=== PATIENT | female | born 2000 | race Caucasian/White ===

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

== ENCOUNTER 2023-11-05 15:11 | Inpatient (IN) ==
--- NOTE | 2023-11-05 15:25 | Emergency Department Note ---
Impression & Plan Pyelonephritis of left kidney, Abscess of left kidney ED Provider Note CHIEF COMPLAINT: Urinary symptoms worsening HISTORY OF PRESENTING ILLNESS: This 23-year-old female patient presents to the emergency department with her mother for evaluation of worsening urinary symptoms. The patient was seen by her PCP on 11/03/2023 for flank pain, fever 104 F max, and nausea. She was diagnosed with a UTI at that time. She was started on Bactrim DS BID x 7 days, but her symptoms do not seem to be improving. Urine culture came back today, growing greater than 100,000 and E. coli that was pansensitive. She states that she has continued intermittent fevers up to 102 F, vomiting, headaches, and left flank pain. However, her urinary symptoms seem to have improved slightly. She rates her discomfort a 6/10. The Tylenol and Advil help her fevers and the pain for 1 to 2 hours, but then the symptoms return again. She denies runny nose, nasal congestion, cough, or sore throat. She has had some mild vaginal discharge, but not sure if it is abnormal. She is sexually active and has been with the same partner for the past 6 years. She does not use protection because she does not feel that she is at risk for STIs. No recent STI testing for either partner. She denies any problems with her BMs. No known ill contacts. She has a history of UTIs in the past with 1 previous pyelonephritis around 21 years old. REVIEW OF SYSTEMS: See HPI for pertinent positives and pertinent negatives. ALLERGIES: NKDA MEDICATIONS: OCPs PAST MEDICAL HISTORY: Denies pertinent past medical or pertinent past surgical history PHYSICAL EXAM: VITALS: Vitals are noted on the nurse's note and reviewed by myself. GENERAL: Non toxic, no acute distress, non-diaphoretic. SKIN: No obvious abnormal skin rashes or lesions. Capillary refill <2 sec. EYES: PERRLA. EOMI. Conjunctivae without injection, sclerae without icterus. NOSE: Patent without discharge. MOUTH: Mucous membranes moist. Uvula midline. Airway patent. Pharynx is erythematous and edematous without exudate. No postnasal drip. No evidence for peritonsillar abscess. NECK: Supple without nuchal rigidity. Bilateral anterior cervical lymphadenopathy noted. HEART: Regular rate and rhythm without murmurs gallops or rubs. LUNGS: Clear to auscultation bilaterally without wheezes, rales or rhonchi. No retractions or accessory muscle use. ABDOMEN: Positive bowel sounds x 4. Normal tympanic percussion. Soft, tender to palpation in the left flank and left side of the abdomen. Mild left sided CVA tenderness. No masses or organomegaly. Adame sign negative. No guarding or rebound tenderness. No focal RLQ tenderness. MUSCULOSKELETAL: No gross musculoskeletal defects. NEURO: Patient was alert and oriented. No focal neurological deficits. DIFFERENTIAL DIAGNOSIS: Differential diagnosis includes hepatitis, pancreatitis, cholecystitis, cholelithiasis, appendicitis, kidney stone, pyelonephritis, UTI, gastritis, gastroenteritis, mesenteric adenitis, obstruction, constipation, hernia, abdominal abscess, perforation, diverticulitis, IBD, ischemic colitis, abdominal aortic aneurysm, , ectopic , ovarian cyst, ovarian torsion, acute salpingitis, STI, strep throat, COVID, RSV, influenza, other viral infection, mononucleosis, or others. ED COURSE AND MEDICAL DECISION MAKING: HISTORY FROM INDEPENDENT HISTORIAN: Additional history was obtained from the patient's mother. MONITOR: Continuous monitor technician: Order was placed for continuous monitor technician. Patient was placed on the monitor technician and continuous pulse ox. Patient was noted to be in sinus tachycardia at an initial rate of 110 bpm per my interpretation. MEDICATIONS GIVEN: 1 L normal saline solution bolus. Toradol 10 mg IV. Zofran 4 mg IV. Rocephin 2 g IV. INTERPRETATION OF LABS: I interpreted the labs with full lab results as below in the lab section of this note. White blood cell count normal 8.54. Hemoglobin normal at 13.5. Platelet count normal at 209. Sodium low at 135, but CMP otherwise normal. Lactate and procalcitonin were normal. Magnesium normal. Urinalysis with 1+ protein, 1+ ketones, trace leukocyte esterase, 6-10 white blood cells, 3-5 red blood cells, 6-10 epithelial cells, and 2+ bacteria. Urine culture is pending. Urine test negative. Respiratory bio fire negative. Group A strep PCR negative. Monospot negative. INTERPRETATION OF IMAGING: Imaging studies were interpreted by myself and read by radiology as per the imaging section of this note. Chest x-ray negative for acute cardiopulmonary etiology. CT scan of the abdomen pelvis with IV contrast showed cystitis with findings suggestive of acute left-sided pyelonephritis with ureteritis/pyelitis with a 1.6 cm hypodensity of the superior pole suggestive of a probable abscess. There is also a 2 cm focus of decreased enhancement within the mid pole of the left kidney which is likely related to the pyelonephritis. However, a renal infarct considered less likely. Normal appendix. No evidence of ureteral or renal calculi or hydronephrosis. EXTERNAL RECORDS REVIEWED: I reviewed the patient's PCP office visit note and outpatient urine culture result from 11/03/2023 as summarized above. CONSULTATIONS: Dr. Stewart of urology. On-call hospitalist. MDM SUMMARY: I examined the patient. The patient was diagnosed with a UTI by her PCP on 11/03/2023 and started on Bactrim. Her urine culture grew greater than 100,000 E. coli that was pansensitive. However, the patient has had continued fevers up to 102 F, left flank pain, vomiting, and a headache. The patient has a history of pyelonephritis when she was around 21 years old. An IV lock was placed and labs were drawn. The patient was given 1 L normal saline solution bolus. She was given Toradol 10 mg IV and Zofran 4 mg IV. Her symptoms improved, but did not fully resolve. She declined any additional medication for pain while in the emergency department. White blood cell count is normal 8.54. Lactate and procalcitonin were normal. The patient is afebrile in the emergency department after taking Tylenol and ibuprofen at home, but has been febrile at home. Blood cultures were not obtained due to the nationwide shortage and low suspicion for sepsis at this time. The remainder the laboratory studies as above. Respiratory bio fire negative. Group A strep PCR negative. Monospot negative. Chest x-ray negative for acute cardiopulmonary etiology. The patient's urinalysis continues to appear infected despite the antibiotic use with urine culture pending. CT scan of the abdomen and pelvis with IV contrast showed evidence for left-sided pyelonephritis with findings suggestive of a probable abscess. The patient was given Rocephin 2 g IV. I spoke with Dr. Stewart of urology who stated that the abscess was too small to drain at this time. He did not recommend surgical intervention at this time. He did recommend admission by medicine for IV antibiotics. He recommends starting with IV Rocephin, but could change to cefepime if the patient did not improve. He stated that he can see the patient in consult tomorrow. I spoke with the on-call hospitalist who agreed to admit the patient for further evaluation and treatment. Please refer to their dictation for further details. The patient's care was transferred in stable condition. 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 Mother No problems noted. Other Breast cancer Denies family history of Ovarian cancer Prostate cancer Colorectal cancer Social History (Updated 08/27/23 @ 10:12 by Tangela Rowley) Smoking Status: Current every day smoker Tobacco Type: E-cigarettes / Vaping Second Hand Exposure: Yes; Do You Dip or Chew Tobacco: No; Hx Alcohol Use: No Hx Substance Use: No Preferred Language: Czech Communication Ability: Effective Visual Impairment: No Limitations Hearing Ability: Normal Wallpaper Inspector Required: No marital status: Single Current Living Situation: Family current occupational status: employed Feels Safe at Home: Yes Childhood Exposure to Second-Hand Smoke: Yes Diet: regular Dental Care, Regularly: Yes Physical Activity Frequency: 1-2 Times per Week Seatbelt Use: always Sunscreen Use: No Assistive Devices: None Allergies Allergies Allergy/AdvReac Type Severity Reaction Status Date / Time No Known Allergies Allergy Verified 11/03/23 11:03 Home Meds Home Medications Medication Instructions Recorded Confirmed acetaminophen 500 mg tablet 1,000 mg PO Q6H PRN Fever Or Pain 11/05/23 11/05/23 (Tylenol Extra Strength) ibuprofen 200 mg tablet 400 mg PO Q6H PRN Pain 11/05/23 11/05/23 Previous Rx's Medication Instructions Recorded norethindrone 1.5 mg-ethinyl 1 tab PO DAILY #84 tabs 10/13/23 estradiol 30 mcg(21)/iron 75 mg(7) tablet (Junel FE 1.5/30 (28)) sulfamethoxazole 800 1 tab PO BID 7 days #14 tabs 11/03/23 mg-trimethoprim 160 mg tablet (Bactrim DS) Results & Data (ED) Vital Signs Vital Signs - 24 hr 11/05/23 15:12 11/05/23 18:10 11/05/23 19:56 Temperature 36.6 C Temperature Source Temporal Artery Scan Pulse Rate 125 H Pulse Rate [Right Finger] 70 97 H Pulse Rhythm [Right Finger] Regular Pulse Strength [Right Finger] Normal Respiratory Rate 18 16 19 Respiratory Effort / Characteristics Non-Labored Non-Labored Spontaneous Non-Labored Respiratory Depth Normal Normal Normal Respiratory Pattern Regular Regular Regular Blood Pressure 124/78 Blood Pressure [Right Arm] 107/67 131/90 Blood Pressure Mean 93 Blood Pressure Mean [Right Arm] 80 103 Blood Pressure Position [Right Arm] Sitting Pulse Oximetry 99 98 95 Oxygen Delivery Method Room Air Room Air Room Air Sepsis Recent Fever Within 48 Hours No Sepsis New/Unexplained Change in Mental Status N/A Sepsis Action Taken by Nursing No Action Required Laboratory Data 11/05/23 15:55 11/05/23 15:55 Lab Results 11/05/23 11/05/23 11/05/23 Range/Units 15:42 15:50 15:55 WBC 8.54 (4.8-10.8) K/ul RBC 4.35 (4.20-5.40) M/uL Hgb 13.5 (12.0-16.0) g/dl Hct 39.2 (37.0-47.0) % MCV 90.1 (80.0-100.0) fL MCH 31.0 (25.0-34.0) pg MCHC 34.4 (32.0-36.0) g/dL RDW Std Deviation 41.4 (36.4-46.3) fL RDW Coeff of Aliyah 12.5 (11.5-14.5) % Plt Count 209 (130-400) K/uL MPV 11.2 (9.4-12.4) fL Immature Gran % (Auto) 0.2 % Neut % (Auto) 76.7 % Lymph % (Auto) 11.9 % [place] % (Auto) 10.9 % Eos % (Auto) 0.2 % Baso % (Auto) 0.1 % Neut # (Auto) 6.54 H (1.40-6.50) K/uL Lymph # (Auto) 1.02 L (1.20-3.40) K/uL [place] # (Auto) 0.93 H (0.11-0.59) K/uL Eos # (Auto) 0.02 (0.00-0.50) K/uL Baso # (Auto) 0.01 (0.00-0.20) K/uL Immature Gran # (Auto) 0.02 (0.01-0.20) K/uL Sodium 135 L (136-145) mmol/L Potassium 4.3 (3.5-5.1) mmol/L Chloride 102 (98-107) mmol/L Carbon Dioxide 23 (21-32) mmol/L Anion Gap 10 (3-11) BUN 6 (6-23) mg/dl Creatinine 0.96 (0.6-1.2) mg/dl Est Cr Clr Drug Dosing 65.1 ml/min Est GFR ( Amer) 98.0 ml/min Est GFR (Non-Af Amer) 84.5 ml/min BUN/Creatinine Ratio 6.3 L (10-20) Glucose 79 (70-99(Fasting)) mg/dl Lactate 1.0 (0.4-2.0) mmol/L Calcium 9.0 (8.6-10.3) mg/dl Magnesium 2.1 (1.7-2.4) mg/dl Total Bilirubin 0.3 (0.2-1.0) mg/dl AST 15 (13-39) U/L ALT 10 (7-52) U/L Alkaline Phosphatase 46 (34-104) U/L Total Protein 7.2 (6.0-8.3) gm/dl Albumin 4.3 (3.4-5.0) gm/dl Globulin 2.9 (2.5-4.0) gm/dl Albumin/Globulin Ratio 1.5 (0.9-2) Procalcitonin 0.29 (0-0.5) ng/ml Urine Color Yellow Urine Appearance Cloudy A (Clear) Urine pH 6.5 (4.5-7.5) Ur Specific [place] 1.017 (1.000-1.030) Urine Protein 1+ H (Negative) Urine Glucose (UA) Negative (Negative) Urine Ketones 1+ H (Negative) Urine Blood Negative (Negative) Urine Nitrite Negative (Negative) Urine Bilirubin Negative (Negative) Urine Urobilinogen Negative (Negative) Ur Leukocyte Esterase Trace H (Negative) Urine WBC (Auto) 6-10 H (0-5) /hpf Urine RBC (Auto) 3-5 H (0-2) /hpf U Hyaline Cast (Auto) 0-2 (0-2) /lpf U Epithel Cells (Auto) 6-10 H (0-2) /hpf Urine Bacteria (Auto) 2+ H (None Seen) Urine Test Negative (Negative) Adenovirus (PCR) (NotDetected) B. pertussis DNA (PCR) (NotDetected) B.parapertussis DNA PCR (NotDetected) C. pneumoniae DNA (PCR) (NotDetected) Coronavirus OC43 (PCR) (NotDetected) Coronavirus HKU1 (PCR) (NotDetected) Coronavirus 229E (PCR) (NotDetected) SARS-CoV-2 (PCR) (NotDetected) Coronavirus NL63 (PCR) (NotDetected) Monoscreen Negative (Negative) Human Metapneumovir PCR (NotDetected) Influenza Type A (PCR) (NotDetected) Influenza Type B (PCR) (NotDetected) M. pneumoniae (PCR) (NotDetected) Parainfluenza 1 (PCR) (NotDetected) Parainfluenza 2 (PCR) (NotDetected) Parainfluenza 3 (PCR) (NotDetected) Parainfluenza 4 (PCR) (NotDetected) RSV (PCR) (NotDetected) Entero/Rhino (PCR) (NotDetected) Group A Strep (PCR) NOT DETECTED (NotDetected) 11/05/23 11/05/23 Range/Units 15:55 15:56 WBC (4.8-10.8) K/ul RBC (4.20-5.40) M/uL Hgb (12.0-16.0) g/dl Hct (37.0-47.0) % MCV (80.0-100.0) fL MCH (25.0-34.0) pg MCHC (32.0-36.0) g/dL RDW Std Deviation (36.4-46.3) fL RDW Coeff of Aliyah (11.5-14.5) % Plt Count (130-400) K/uL MPV (9.4-12.4) fL Immature Gran % (Auto) % Neut % (Auto) % Lymph % (Auto) % [place] % (Auto) % Eos % (Auto) % Baso % (Auto) % Neut # (Auto) (1.40-6.50) K/uL Lymph # (Auto) (1.20-3.40) K/uL [place] # (Auto) (0.11-0.59) K/uL Eos # (Auto) (0.00-0.50) K/uL Baso # (Auto) (0.00-0.20) K/uL Immature Gran # (Auto) (0.01-0.20) K/uL Sodium (136-145) mmol/L Potassium (3.5-5.1) mmol/L Chloride (98-107) mmol/L Carbon Dioxide (21-32) mmol/L Anion Gap (3-11) BUN (6-23) mg/dl Creatinine (0.6-1.2) mg/dl Est Cr Clr Drug Dosing ml/min Est GFR ( Amer) ml/min Est GFR (Non-Af Amer) ml/min BUN/Creatinine Ratio (10-20) Glucose (70-99(Fasting)) mg/dl Lactate (0.4-2.0) mmol/L Calcium (8.6-10.3) mg/dl Magnesium (1.7-2.4) mg/dl Total Bilirubin (0.2-1.0) mg/dl AST (13-39) U/L ALT (7-52) U/L Alkaline Phosphatase (34-104) U/L Total Protein (6.0-8.3) gm/dl Albumin (3.4-5.0) gm/dl Globulin (2.5-4.0) gm/dl Albumin/Globulin Ratio (0.9-2) Procalcitonin (0-0.5) ng/ml Urine Color Urine Appearance (Clear) Urine pH (4.5-7.5) Ur Specific [place] (1.000-1.030) Urine Protein (Negative) Urine Glucose (UA) (Negative) Urine Ketones (Negative) Urine Blood (Negative) Urine Nitrite (Negative) Urine Bilirubin (Negative) Urine Urobilinogen (Negative) Ur Leukocyte Esterase (Negative) Urine WBC (Auto) (0-5) /hpf Urine RBC (Auto) (0-2) /hpf U Hyaline Cast (Auto) (0-2) /lpf U Epithel Cells (Auto) (0-2) /hpf Urine Bacteria (Auto) (None Seen) Urine Test (Negative) Adenovirus (PCR) Not Detected (NotDetected) B. pertussis DNA (PCR) Not Detected (NotDetected) B.parapertussis DNA PCR Not Detected (NotDetected) C. pneumoniae DNA (PCR) Not Detected (NotDetected) Coronavirus OC43 (PCR) Not Detected (NotDetected) Coronavirus HKU1 (PCR) Not Detected (NotDetected) Coronavirus 229E (PCR) Not Detected (NotDetected) SARS-CoV-2 (PCR) Not Detected (NotDetected) Coronavirus NL63 (PCR) Not Detected (NotDetected) Monoscreen Cancelled (Negative) Human Metapneumovir PCR Not Detected (NotDetected) Influenza Type A (PCR) Not Detected (NotDetected) Influenza Type B (PCR) Not Detected (NotDetected) M. pneumoniae (PCR) Not Detected (NotDetected) Parainfluenza 1 (PCR) Not Detected (NotDetected) Parainfluenza 2 (PCR) Not Detected (NotDetected) Parainfluenza 3 (PCR) Not Detected (NotDetected) Parainfluenza 4 (PCR) Not Detected (NotDetected) RSV (PCR) Not Detected (NotDetected) Entero/Rhino (PCR) Not Detected (NotDetected) Group A Strep (PCR) (NotDetected) Administered Medications Sodium Chloride (Nss) 1,000 mls @ 999 mls/hr IV .Q1H1M CESAR Stop: 11/05/23 20:37 Last Admin: 11/05/23 19:49 Dose: 999 mls/hr Documented By: KMS Discontinued Medications Sodium Chloride (Nss) 1,000 mls @ 999 mls/hr IV .Q1H1M ONE Stop: 11/05/23 16:35 Last Infusion: 11/05/23 17:10 Dose: Infused Documented By: Admin: 11/05/23 16:00 Dose: 999 mls/hr Documented By: NAM Ceftriaxone Sodium (Rocephin) 2,000 mg in 50 mls @ 100 mls/hr IV NOW STA Stop: 11/05/23 18:33 Last Infusion: 11/05/23 19:04 Dose: Infused Documented By: Admin: 11/05/23 18:13 Dose: 100 mls/hr Documented By: NAM Ioversol (Optiray 320 100ml) 93 ml IV ONCE ONE Stop: 11/05/23 17:48 Last Admin: 11/05/23 17:47 Dose: 93 ml Documented By: JOANNA Ketorolac Tromethamine (Ketorolac Tromethamine 15 Mg/Ml Vial) 10 mg IV NOW ONE Stop: 11/05/23 15:36 Last Admin: 11/05/23 16:00 Dose: 10 mg Documented By: NAM Ondansetron HCl (Ondansetron Inj 2 Mg/Ml 2 Ml Vial) 4 mg IV NOW STA Stop: 11/05/23 15:36 Last Admin: 11/05/23 16:00 Dose: 4 mg Documented By: NAM Imaging Data Radiologist's Impression: Abdomen/Pelvis CT 11/05/23 15:[address] WITH IV CONTRAST CT DOSE: 324.72 mGy.cm HISTORY: Acute left-sided flank pain with urinary tract infection Left flank pain, UTI, fever - eval pyelo TECHNIQUE: Multiaxial CT images of the abdomen and pelvis were performed following the IV administration of 93 cc of Optiray, A dose lowering technique was utilized adhering to the principles of ALARA. COMPARISON STUDY: None. FINDINGS: The lung bases are clear. The liver, spleen, gallbladder, pancreas, and adrenal glands are within normal limits. Unremarkable right kidney. There is a 1.6 x 0.5 cm focus of decreased attenuation within the superior pole left kidney on image 101 with moderate adjacent inflammatory stranding. 2.1 cm focus of decreased enhancement involves the anterior interpolar right kidney on image 126 series 3. Retroaortic left renal vein. There is inflammatory stranding within the left renal pelvis with urothelial thickening. No renal or ureteral calculi or hydronephrosis. Decompressed bladder with wall thickening. Bilateral ovarian follicles. Trace free pelvic fluid. Normal appendix. No bowel wall thickening or obstruction. No suspicious lytic or blastic osseous lesions. IMPRESSION: 1. Cystitis with findings suggestive of acute left-sided pyelonephritis and ureteritis/pyelitis with 1.6 cm hypodensity of the superior pole suggestive of a probable abscess. One-week follow-up ultrasound recommended. 2. 2 cm focus of decreased enhancement within the mid pole left kidney is likely related to the aforementioned pyelonephritis. A renal infarct considered less likely. This can also be evaluation on follow-up. 3. Normal appendix. ACT 112: Negative or not required by law. The above report was generated using voice recognition software. It may contain grammatical, syntax or spelling errors. Electronically signed by: Jaspal Galicia M.D. 11/05/2023 6:39 PM Chest X-Ray 11/05/23 15:35 XR chest 1V portable HISTORY: fever, flank pain COMPARISON: None. FINDINGS: The lungs are clear. Cardiac silhouette is normal in size. No pleural effusions. No pneumothorax. IMPRESSION: No acute process. ACT 112: Negative or not required by law. Electronically signed by: Nicolas Canas M.D. 11/05/2023 4:15 PM Discharge Plan Visit Data Chief Complaint: Urinary Symptoms Stated Complaint: URINARY SYMPTOMS WORSENING ED Provider: Florencio Roa ED Midlevel Provider: Carina Santana Discharge Problem: Pyelonephritis of left kidney, Abscess of left kidney Patient Disposition: Admitted As Inpatient Condition: Good Forms Stand Alone Forms: [place] Prescriptions Prescriptions: No Action norethindrone-e.estradiol-iron [ (28)] 1.5 mg-30 mcg (21)/75 mg (7) tablet 1 tab PO DAILY Qty: 84 4RF sulfamethoxazole-trimethoprim [Bactrim DS] 800-160 mg tablet 1 tab PO BID 7 Days Qty: 14 0RF acetaminophen [Tylenol Extra Strength] 500 mg Tablet 1,000 mg PO Q6H PRN (Reason: Fever Or Pain) ibuprofen 200 mg Tablet 400 mg PO Q6H PRN (Reason: Pain) Referrals Referrals: Doreen Sutton CRNP [Primary Care Provider] -
[2023-11-05] MEDS: ONDANSETRON INJ 2 MG/ML 2 ML VIAL IV STA (16:00)
[2023-11-05] MEDS: KETOROLAC TROMETHAMINE 15 MG/ML VIAL IV ONE (16:00)
[2023-11-05] MEDS: SODIUM CHLORIDE 0.9% 1,000 ML IV ONE (16:00)
--- NOTE | 2023-11-05 16:17 | XRay Report ---
XR chest 1V portable HISTORY: fever, flank pain COMPARISON: None. FINDINGS: The lungs are clear. Cardiac silhouette is normal in size. No pleural effusions. No pneumot horax. IMPRESSION: No acute process. ACT 112: Negative or not required by law. Electronically signed by: Nicolas Canas M.D. 11/05/2023 4:15 PM
[2023-11-05 16:21] LABS: Basophils # (auto) 0.01 K/uL (0.00-0.20); Basophils % (auto) 0.1 %; Eosinophils # (auto) 0.02 K/uL (0.00-0.50); Eosinophils % (auto) 0.2 %; Hematocrit (blood only) 39.2 % (37.0-47.0); Hemoglobin 13.5 g/dl (12.0-16.0); Immature Granulocytes # (auto) 0.02 K/uL (0.01-0.20); Immature Granulocytes % (auto) 0.2 %; Lymphocytes # (auto) 1.02 K/uL (1.20-3.40); Lymphocytes % (auto) 11.9 %; Mean Corpuscular Hgb Conc 34.4 g/dL (32.0-36.0); Mean Corpuscular Volume 90.1 fL (80.0-100.0); Mean Platelet Volume 11.2 fL (9.4-12.4); Monocytes # (auto) 0.93 K/uL (0.11-0.59); Monocytes % (auto) 10.9 %; Neutrophils # (auto) 6.54 K/uL (1.40-6.50); Neutrophils % (auto) 76.7 %; Platelet Count 209 K/uL (130-400); RDW Coefficient of Variation 12.5 % (11.5-14.5); RDW Standard Deviation 41.4 fL (36.4-46.3); Red Blood Count 4.35 M/uL (4.20-5.40); White Blood Count 8.54 K/ul (4.8-10.8)
[2023-11-05 16:21] LABS: Pregnancy Test, Urine Negative (Negative)
[2023-11-05 16:29] LABS: Appearance Urine Cloudy (Clear); Bacteria Urine Automated 2+ (None Seen); Bilirubin Urine Negative (Negative); Blood Urine Negative (Negative); Cast Urine Automated 0-2 /lpf (0-2); Color Urine Yellow; Glucose Urine UA Negative (Negative); Ketones Urine 1+ (Negative); Leukocyte Esterase Urine Trace (Negative); Nitrite Urine Negative (Negative); Protein Urine 1+ (Negative); Specific Gravity Urine 1.017 (1.000-1.030); Urobilinogen Urine Negative (Negative); pH Urine 6.5 (4.5-7.5)
[2023-11-05 17:09] LABS: Albumin Level 4.3 gm/dl (3.4-5.0); Bilirubin,Total 0.3 mg/dl (0.2-1.0); Magnesium 2.1 mg/dl (1.7-2.4); Potassium 4.3 mmol/L (3.5-5.1)
[2023-11-05 17:09] LABS: Adenovirus PCR Not Detected (NotDetected); Bordetella parapertussis PCR Not Detected (NotDetected); Bordetella pertussis PCR Not Detected (NotDetected); Chlamydia pneumoniae PCR Not Detected (NotDetected); Coronavirus 229E PCR Not Detected (NotDetected); Coronavirus CoV-2 (COVID19)PCR Not Detected (NotDetected); Coronavirus HKU1 PCR Not Detected (NotDetected); Coronavirus NL63 PCR Not Detected (NotDetected); Coronavirus OC43PCR Not Detected (NotDetected); Human Metapneumovirus PCR Not Detected (NotDetected); Influenza A PCR Not Detected (NotDetected); Influenza B PCR Not Detected (NotDetected); Mycoplasma pneumoniae PCR Not Detected (NotDetected); Parainfluenza Virus 1 PCR Not Detected (NotDetected); Parainfluenza Virus 2 PCR Not Detected (NotDetected); Parainfluenza Virus 3 PCR Not Detected (NotDetected); Parainfluenza Virus 4 PCR Not Detected (NotDetected); Respiratory Syncytial VirusPCR Not Detected (NotDetected); Rhinovirus/Enterovirus PCR Not Detected (NotDetected)
[2023-11-05 17:14] LABS: Albumin Globulin Ratio 1.5 (0.9-2); BUN Creatinine Ratio 6.3 (10-20); Creatinine Clr Calc Pharmacy 65.1 ml/min; Est GFR (Non-African American) 84.5 ml/min; Globulin 2.9 gm/dl (2.5-4.0); Total Protein 7.2 gm/dl (6.0-8.3)
[2023-11-05] MEDS: OPTIRAY 320 100ml IV ONE (17:47)
[2023-11-05] MEDS: cefTRIAXone SODIUM 2,000 MG/50 ML BAG IV STA (18:13)
--- NOTE | 2023-11-05 18:41 | CT Scan Report ---
ABDOMEN AND PELVIS CT WITH IV CONTRAST CT DOSE: 324.72 mGy.cm HISTORY: Acute left-sided flank pain with urinary tract infection Left flank pain, UTI, fever - eval pyelo TECHNIQUE: Multiaxial CT images of the abdomen and pelvis were performed following the IV administrat ion of 93 cc of Optiray, A dose lowering technique was utilized adhering to the principles of ALARA. COMPARISON STUDY: None. FINDINGS: The lung bases are clear. The liver, spleen, gallbladder, pancreas, and adrenal glands are within normal limits. Unremarkable right kidney. There is a 1.6 x 0.5 cm focus of decreased attenuati on within the superior pole left kidney on image 101 with moderate adjacent inflammatory stranding. 2 .1 cm focus of decreased enhancement involves the anterior interpolar right kidney on image 126 serie s 3. Retroaortic left renal vein. There is inflammatory stranding within the left renal pelvis with u rothelial thickening. No renal or ureteral calculi or hydronephrosis. Decompressed bladder with wall thickening. Bilateral ovarian follicles. Trace free pelvic fluid. Normal appendix. No bowel wall thickening or obstruction. No suspicious lytic or blastic osseous lesi ons. IMPRESSION: 1. Cystitis with findings suggestive of acute left-sided pyelonephritis and ureteritis/pyelitis with 1.6 cm hypodensity of the superior pole suggestive of a probable abscess. One-week follow-up ultrasou nd recommended. 2. 2 cm focus of decreased enhancement within the mid pole left kidney is likely related to the afore mentioned pyelonephritis. A renal infarct considered less likely. This can also be evaluation on foll ow-up. 3. Normal appendix. ACT 112: Negative or not required by law. The above report was generated using voice recognition software. It may contain grammatical, syntax o r spelling errors. Electronically signed by: Jaspal Galicia M.D. 11/05/2023 6:39 PM
[2023-11-05] MEDS ORDERED: ONDANSETRON INJ 2 MG/ML 2 ML VIAL IV PRN (19:41)
[2023-11-05] MEDS ORDERED: ACETAMINOPHEN 1,000 MG/100 ML VIAL IV PRN (19:41)
[2023-11-05] MEDS ORDERED: traMADol HCL 50 MG TABLET PO PRN (19:42)
[2023-11-05] MEDS: SODIUM CHLORIDE 0.9% 1,000 ML IV SCH (19:49)
[2023-11-05] MEDS: DAPTOmycin 175 MG in SYRINGE 0 ML IV SCH (20:22)
[2023-11-05] MEDS: PIPERACILLIN/TAZOBACTAM 4.5 GM/100 ML BAG IV STA (20:58)
[2023-11-05] MEDS: LACTATED RINGER'S 1,000 ML IV SCH (22:04)
--- NOTE | 2023-11-05 22:13 | History & Physical Report ---
Date of Service November 05, 2023 Assessment & Plan (1) Sepsis due to urinary tract infection: (2) Abscess of left kidney: (3) Pyelonephritis of left kidney: (4) Failure of outpatient treatment: (5) Ureteritis: (6) Pyelitis: (7) Cystitis: (8) Nausea and vomiting: Plan Sepsis due to urinary tract infection/left pyelonephritis/ureteritis/pyelitis/cystitis/1.6 cm superior pole abscess- Heart rate max 125, temperature 104 F, blood pressure 106/57 CT scan of abdomen pelvis with the above findings Outpatient urine culture with pansensitive E. coli Failure of outpatient treatment with Bactrim DS, which will be held Daptomycin 175 mg IV every 24 hours Zosyn 4.5 g IV every 8 hours From the ED received the following: Normal saline 1 L bolus, Toradol 10 mg IV, Zofran 4 mg IV, and ceftriaxone 2 mg IV LR at 150 mL/h x 2 L Zofran 4 mg IV every 6 hours as needed Acetaminophen 667 mg IV every 8 hours as needed for mild pain or fever Tramadol 50 mg p.o. every 4 hours as needed for moderate pain Follow serial CBC with differential, chemistry profile and magnesium level Admit to medical telemetry due to potential for declining blood pressure Consult urology Admission and Anticipated Discharge Date Admission Date: November 05, 2023 History of Present Illness Chief Complaint: The patient presents to the emergency department due to concerns regarding worsening urinary symptoms, that she initially presented to her PCP on 11/03/2023 for flank pain, fever of maximum 104 F and nausea. She was diagnosed with a UTI at that time, and empirically started on Bactrim DS twice daily x 7 days. Today, her urine culture did return growth of greater than 100,000 pansensitive E. coli, but since her symptoms have been worsening, she presented to the ED for assessment. She has had temperature of 102 F today, vomiting, headaches and worsening left flank pain. Primary Care Provider: KERRI Gutierrez The patient is a 23-year-old female with a past medical history including left breast mass, and a history of urinary tract infections, who presents to the emergency department with worsening symptoms as noted above despite being placed on Bactrim DS for a pansensitive E. coli urinary tract infection. Allergies Allergy/AdvReac Type Severity Reaction Status Date / Time No Known Allergies Allergy Verified 11/03/23 11:03 Home Medications Medication Instructions Recorded Confirmed Type norethindrone 1.5 mg-ethinyl 1 tab PO DAILY #84 tabs 10/13/23 11/05/23 Rx estradiol 30 mcg(21)/iron 75 mg(7) tablet (Junel FE 1.09/03 (28)) sulfamethoxazole 800 1 tab PO BID 7 days #14 tabs 11/03/23 11/05/23 Rx mg-trimethoprim 160 mg tablet (Bactrim DS) acetaminophen 500 mg tablet 1,000 mg PO Q6H PRN Fever Or Pain 11/05/23 11/05/23 History (Tylenol Extra Strength) ibuprofen 200 mg tablet 400 mg PO Q6H PRN Pain 11/05/23 11/05/23 History Past Med/Surg History Problem List (Updated 11/06/23 @ 03:33 by Nathan Miles MD) Sepsis due to urinary tract infection Nausea and vomiting Cystitis Pyelitis Ureteritis Failure of outpatient treatment Abscess of left kidney (Acute) Pyelonephritis of left kidney (Acute) 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 Mother No problems noted. Other Breast cancer Denies family history of Ovarian cancer Prostate cancer Colorectal cancer Social History (Updated 08/27/23 @ 10:12 by Tangela Rowley) Smoking Status: Current every day smoker Tobacco Type: E-cigarettes / Vaping Second Hand Exposure: Yes; Do You Dip or Chew Tobacco: No; Hx Alcohol Use: Yes Hx Substance Use: No Preferred Language: Nigerien Communication Ability: Effective Visual Impairment: No Limitations Hearing Ability: Normal Die Sizer Required: No Beliefs That Will Affect Care: None marital status: Single Current Living Situation: Family current occupational status: employed Other Information That Helps Us Care for You: No Feels Safe at Home: Yes Safety Concerns: Feels Safe At This Time Childhood Exposure to Second-Hand Smoke: Yes Diet: regular Dental Care, Regularly: Yes Physical Activity Frequency: 1-2 Times per Week Seatbelt Use: always Sunscreen Use: No Assistive Devices: None Review of Systems Review of Systems: The patient denies chest pain, palpitations, shortness of breath, dyspnea on exertion, cough, lower extremity swelling, sore throat, diarrhea , constipation, blood in urine or stool, memory loss, loss of consciousness, rash, abnormal bruising or bleeding, imbalance, focal weakness, numbness or tingling in arms or legs, neck pain, or night sweats. The review of systems is otherwise negative other than for that already noted above, and at least 10 systems have been reviewed. Physical Exam Physical Exam: The patient is awake, alert and oriented 3, tearful, well developed and well nourished, normocephalic and atraumatic, lying in bed and in no acute distress. HEENT--PERRL, EOMI, mucous membranes and oropharynx mildly dry. Neck--supple. No JVD. No bruits. Thyroid normal, trachea midline, no adenopathy. Heart--normal S1 and S2. No murmurs, rubs or gallops. Lungs--clear bilaterally, no respiratory distress, no accessory muscle use. Abdomen--normal bowel sounds and soft. Nontender. Nondistended, no hernias or masses, no organomegaly. Extremities--no cyanosis or clubbing. No edema. Dermatologic--normal skin turgor, normal color, no abnormal lymph nodes, no rash. Neurologic--cranial nerves II through XII grossly intact. Rheumatologic--normal range of motion. Psychiatric--normal affect. Results & Data Results & Data Vital Signs (Past 12 Hours) Vital Signs Temp Pulse Pulse Resp BP BP Pulse Ox 11/05/23 21:51 96 H 18 112/65 97 11/05/23 19:56 97 H 19 131/90 95 11/05/23 18:10 70 16 107/67 98 11/05/23 15:12 36.6 C 125 H 18 124/78 99 O2 Del Method 11/05/23 21:51 Room Air 11/05/23 19:56 Room Air 11/05/23 18:10 Room Air 11/05/23 15:12 Room Air Laboratory Results Laboratory Results WBC 8.54 K/ul (4.8-10.8) 11/05/23 15:55 RBC 4.35 M/uL (4.20-5.40) 11/05/23 15:55 Hgb 13.5 g/dl (12.0-16.0) 11/05/23 15:55 Hct 39.2 % (37.0-47.0) 11/05/23 15:55 MCV 90.1 fL (80.0-100.0) 11/05/23 15:55 MCH 31.0 pg (25.0-34.0) 11/05/23 15:55 MCHC 34.4 g/dL (32.0-36.0) 11/05/23 15:55 RDW Std Deviation 41.4 fL (36.4-46.3) 11/05/23 15:55 RDW Coeff of Aliyah 12.5 % (11.5-14.5) 11/05/23 15:55 Plt Count 209 K/uL (130-400) 11/05/23 15:55 MPV 11.2 fL (9.4-12.4) 11/05/23 15:55 Immature Gran % (Auto) 0.2 % 11/05/23 15:55 Neut % (Auto) 76.7 % 11/05/23 15:55 Lymph % (Auto) 11.9 % 11/05/23 15:55 [place] % (Auto) 10.9 % 11/05/23 15:55 Eos % (Auto) 0.2 % 11/05/23 15:55 Baso % (Auto) 0.1 % 11/05/23 15:55 Neut # (Auto) 6.54 K/uL (1.40-6.50) H 11/05/23 15:55 Lymph # (Auto) 1.02 K/uL (1.20-3.40) L 11/05/23 15:55 [place] # (Auto) 0.93 K/uL (0.11-0.59) H 11/05/23 15:55 Eos # (Auto) 0.02 K/uL (0.00-0.50) 11/05/23 15:55 Baso # (Auto) 0.01 K/uL (0.00-0.20) 11/05/23 15:55 Immature Gran # (Auto) 0.02 K/uL (0.01-0.20) 11/05/23 15:55 Sodium 135 mmol/L (136-145) L 11/05/23 15:55 Potassium 4.3 mmol/L (3.5-5.1) 11/05/23 15:55 Chloride 102 mmol/L (98-107) 11/05/23 15:55 Carbon Dioxide 23 mmol/L (21-32) 11/05/23 15:55 Anion Gap 10 (3-11) 11/05/23 15:55 BUN 6 mg/dl (6-23) 11/05/23 15:55 Creatinine 0.96 mg/dl (0.6-1.2) 11/05/23 15:55 Est Cr Clr Drug Dosing 65.1 ml/min 11/05/23 15:55 Est GFR ( Amer) 98.0 ml/min 11/05/23 15:55 Est GFR (Non-Af Amer) 84.5 ml/min 11/05/23 15:55 BUN/Creatinine Ratio 6.3 (10-20) L 11/05/23 15:55 Glucose 79 mg/dl (70-99(Fasting)) 11/05/23 15:55 Lactate 1.0 mmol/L (0.4-2.0) 11/05/23 15:55 Calcium 9.0 mg/dl (8.6-10.3) 11/05/23 15:55 Magnesium 2.1 mg/dl (1.7-2.4) 11/05/23 15:55 Total Bilirubin 0.3 mg/dl (0.2-1.0) 11/05/23 15:55 AST 15 U/L (13-39) 11/05/23 15:55 ALT 10 U/L (7-52) 11/05/23 15:55 Alkaline Phosphatase 46 U/L (34-104) 11/05/23 15:55 Total Protein 7.2 gm/dl (6.0-8.3) 11/05/23 15:55 Albumin 4.3 gm/dl (3.4-5.0) 11/05/23 15:55 Globulin 2.9 gm/dl (2.5-4.0) 11/05/23 15:55 Albumin/Globulin Ratio 1.5 (0.9-2) 11/05/23 15:55 Procalcitonin 0.29 ng/ml (0-0.5) 11/05/23 15:55 Urine Color Yellow 11/05/23 15:50 Urine Appearance Cloudy (Clear) A 11/05/23 15:50 Urine pH 6.5 (4.5-7.5) 11/05/23 15:50 Ur Specific [place] 1.017 (1.000-1.030) 11/05/23 15:50 Urine Protein 1+ (Negative) H 11/05/23 15:50 Urine Glucose (UA) Negative (Negative) 11/05/23 15:50 Urine Ketones 1+ (Negative) H 11/05/23 15:50 Urine Blood Negative (Negative) 11/05/23 15:50 Urine Nitrite Negative (Negative) 11/05/23 15:50 Urine Bilirubin Negative (Negative) 11/05/23 15:50 Urine Urobilinogen Negative (Negative) 11/05/23 15:50 Ur Leukocyte Esterase Trace (Negative) H 11/05/23 15:50 Urine WBC (Auto) 6-10 /hpf (0-5) H 11/05/23 15:50 Urine RBC (Auto) 3-5 /hpf (0-2) H 11/05/23 15:50 U Hyaline Cast (Auto) 0-2 /lpf (0-2) 11/05/23 15:50 U Epithel Cells (Auto) 6-10 /hpf (0-2) H 11/05/23 15:50 Urine Bacteria (Auto) 2+ (None Seen) H 11/05/23 15:50 Urine Test Negative (Negative) 11/05/23 15:50 Adenovirus (PCR) Not Detected (NotDetected) 11/05/23 15:56 B. pertussis DNA (PCR) Not Detected (NotDetected) 11/05/23 15:56 B.parapertussis DNA PCR Not Detected (NotDetected) 11/05/23 15:56 C. pneumoniae DNA (PCR) Not Detected (NotDetected) 11/05/23 15:56 Coronavirus OC43 (PCR) Not Detected (NotDetected) 11/05/23 15:56 Coronavirus HKU1 (PCR) Not Detected (NotDetected) 11/05/23 15:56 Coronavirus 229E (PCR) Not Detected (NotDetected) 11/05/23 15:56 SARS-CoV-2 (PCR) Not Detected (NotDetected) 11/05/23 15:56 Coronavirus NL63 (PCR) Not Detected (NotDetected) 11/05/23 15:56 Monoscreen Cancelled 11/05/23 15:55 Monoscreen Negative (Negative) 11/05/23 15:55 Human Metapneumovir PCR Not Detected (NotDetected) 11/05/23 15:56 Influenza Type A (PCR) Not Detected (NotDetected) 11/05/23 15:56 Influenza Type B (PCR) Not Detected (NotDetected) 11/05/23 15:56 M. pneumoniae (PCR) Not Detected (NotDetected) 11/05/23 15:56 Parainfluenza 1 (PCR) Not Detected (NotDetected) 11/05/23 15:56 Parainfluenza 2 (PCR) Not Detected (NotDetected) 11/05/23 15:56 Parainfluenza 3 (PCR) Not Detected (NotDetected) 11/05/23 15:56 Parainfluenza 4 (PCR) Not Detected (NotDetected) 11/05/23 15:56 RSV (PCR) Not Detected (NotDetected) 11/05/23 15:56 Entero/Rhino (PCR) Not Detected (NotDetected) 11/05/23 15:56 Group A Strep (PCR) NOT DETECTED (NotDetected) 11/05/23 15:42 Impressions Abdomen/Pelvis CT 11/05/23 15:[address] WITH IV CONTRAST CT DOSE: 324.72 mGy.cm HISTORY: Acute left-sided flank pain with urinary tract infection Left flank pain, UTI, fever - eval pyelo TECHNIQUE: Multiaxial CT images of the abdomen and pelvis were performed following the IV administration of 93 cc of Optiray, A dose lowering technique was utilized adhering to the principles of ALARA. COMPARISON STUDY: None. FINDINGS: The lung bases are clear. The liver, spleen, gallbladder, pancreas, and adrenal glands are within normal limits. Unremarkable right kidney. There is a 1.6 x 0.5 cm focus of decreased attenuation within the superior pole left kidney on image 101 with moderate adjacent inflammatory stranding. 2.1 cm focus of decreased enhancement involves the anterior interpolar right kidney on image 126 series 3. Retroaortic left renal vein. There is inflammatory stranding within the left renal pelvis with urothelial thickening. No renal or ureteral calculi or hydronephrosis. Decompressed bladder with wall thickening. Bilateral ovarian follicles. Trace free pelvic fluid. Normal appendix. No bowel wall thickening or obstruction. No suspicious lytic or blastic osseous lesions. IMPRESSION: 1. Cystitis with findings suggestive of acute left-sided pyelonephritis and ureteritis/pyelitis with 1.6 cm hypodensity of the superior pole suggestive of a probable abscess. One-week follow-up ultrasound recommended. 2. 2 cm focus of decreased enhancement within the mid pole left kidney is likely related to the aforementioned pyelonephritis. A renal infarct considered less likely. This can also be evaluation on follow-up. 3. Normal appendix. ACT 112: Negative or not required by law. The above report was generated using voice recognition software. It may contain grammatical, syntax or spelling errors. Electronically signed by: Jaspal Galicia M.D. 11/05/2023 6:39 PM Chest X-Ray 11/05/23 15:35 XR chest 1V portable HISTORY: fever, flank pain COMPARISON: None. FINDINGS: The lungs are clear. Cardiac silhouette is normal in size. No pleural effusions. No pneumothorax. IMPRESSION: No acute process. ACT 112: Negative or not required by law. Electronically signed by: Nicolas Canas M.D. 11/05/2023 4:15 PM Code Status & VTE Plan Code Status Full code VTE Prophylaxis Plan VTE Prophylaxis will be ordered: Yes PG Care Time/CCT Total # of Minutes Spent Total Time Spent with Patient: Total time spent is greater than 50% in coordination of care (as documented) at patient's floor/unit and/or counseling patient: Coding Level of Care Code 18165 INT INP/OBS CARE 3/75MIN Diagnoses Sepsis due to urinary tract infection A41.9; N39.0 Abscess of left kidney N15.1 Pyelonephritis of left kidney N12 Failure of outpatient treatment Z78.9 Ureteritis N28.89 Pyelitis N12 Cystitis N30.90 Nausea and vomiting R11.2
[2023-11-05] MEDS: ACETAMINOPHEN IV PRN (23:53)
[2023-11-06] MEDS: PIPERACILLIN/TAZOBACTAM 4.5 GM in DEXTROSE 5% MINI-B 100 ML IV SCH (01:36)
[2023-11-06 07:19] LABS: Basophils # (auto) 0.03 K/uL (0.00-0.20); Basophils % (auto) 0.5 %; Eosinophils # (auto) 0.04 K/uL (0.00-0.50); Eosinophils % (auto) 0.6 %; Hemoglobin 12.2 g/dl (12.0-16.0); Immature Granulocytes # (auto) 0.03 K/uL (0.01-0.20); Immature Granulocytes % (auto) 0.5 %; Lymphocytes % (auto) 15.4 %; Mean Corpuscular Hemoglobin 30.2 pg (25.0-34.0); Mean Corpuscular Volume 91.6 fL (80.0-100.0); Mean Platelet Volume 10.8 fL (9.4-12.4); Monocytes # (auto) 0.68 K/uL (0.11-0.59); Monocytes % (auto) 10.4 %; Neutrophils # (auto) 4.73 K/uL (1.40-6.50); Neutrophils % (auto) 72.6 %; Platelet Count 197 K/uL (130-400); RDW Coefficient of Variation 12.6 % (11.5-14.5); RDW Standard Deviation 42.5 fL (36.4-46.3); Red Blood Count 4.04 M/uL (4.20-5.40); White Blood Count 6.51 K/ul (4.8-10.8)
--- NOTE | 2023-11-06 07:19 | Hospitalist Progress Note ---
Date of Service November 06, 2023 Assessment & Plan (1) Sepsis due to urinary tract infection: (2) Abscess of left kidney: (3) Pyelonephritis of left kidney: (4) Failure of outpatient treatment: (5) Ureteritis: (6) Pyelitis: (7) Cystitis: (8) Nausea and vomiting: Plan 1. Sepsis IVF and antibiotics given in ED. Sepsis appears to have resolved. Pt is afebrile, BPs and HR have been normal. - Monitor vitals - Monitor CMP and magnesium level 2. Left kidney abscess CT scan of abdomen pelvis found 1.6 cm abscess at superior pole. - Urology consult states abscess is below size criteria for drainage. Advised to continue broad abx and narrow following results of urine culture. 3. Left pyelonephritis Pt received Bactrim in outpatient setting for acute cystitis on 11-04-23. Urine culture in outpatient grew pansensitive E. coli. L flank pain progress along with nausea and vomiting. Pt was give IV ceftriaxone, then switched daptomycin, but switched to IV pip-tazo. Urine Cultures pending from ED. Nausea and vomiting has stopped. - Change IV pip-tazo and daptomycin to IV ceftriaxone IV 1g q24h - Await urine cultures - Continue LR 125 mls - Tylenol po for fever or pain - Zofran PRN for nausea Full code DC to home when stable DVT prophylaxis- mobile LR 125mls Full diet Admission and Anticipated Discharge Date Admission Date: November 05, 2023 Supervising Physician Co-Signing Physician Notes I personally examined the patient and verified all busch points of history and exam, discussed case, and agree with decision making with Dr De La Garza Feeling much better. No new complaints. Vitals noted, in general she is awake and alert pleasant no distress. HEENT normocephalic atraumatic mucous membranes moist. Breathing unlabored no accessory muscle use good effort. Skin without rashes pallor or icterus. Neuro without focal deficits. Pyelonephritis/renal abscess with sepsis present on admissionsepsis seems to have resolved. Overall looking much better. Given gunn sensitive E. coli on 11/02 and Bactrim treatment, I suspect that the infection was simply a rapid onset/"fast upslope" and was likely getting worse in the face of what should have normally been adequate treatment. Given how sick she was/with a renal abscess, certainly prefer beta-lactam agent at this point. Given that we are not dealing with severe sepsis/septic shock, given that we have a prior culture of pansensitive E. coli, and given that she is getting bettercan narrow antibiotics to ceftriaxone and follow. As long as she continues to feel better as the day goes into tomorrow/afebrilehopefully home on an oral beta-lactam (cefpodoxime or Augmentin) tomorrowduration of treatment to be determined on clinical follow-upprobably would get a renal ultrasound in 7-10 days as an outpatient, and treat for a minimum of 2 weeks, extended if needed. DVT proph - ambulation otherwise as above Subjective Pt is a 23 yo female who presented to ED after failed therapy with bactrim for UTI. Pt found to have pyelonephrosis. This morning, pt is reporting she is feeling better but is very tired and does not have an appetite. She endorses L sided flank soreness, but much reduced from yesterday. She denies chest pain, SOB, nausea, vomiting or diarrhea. Physical Exam Physical Exam: The patient is awake, alert and oriented 3,well developed and well nourished, normocephalic and atraumatic, lying in bed and in no acute distress. HEENT--PERRL, EOMI, mucous membranes and oropharynx mildly moist. Neck--supple. No JVD. No bruits. Thyroid normal, trachea midline, no adenopathy. Heart--normal S1 and S2. No murmurs, rubs or gallops. Lungs--clear bilaterally, no respiratory distress, no accessory muscle use. Abdomen--normal bowel sounds and soft. Nontender. Extremities--no cyanosis or clubbing. No edema. Dermatologic--normal skin turgor, normal color, no abnormal lymph nodes, no rash. Neurologic--cranial nerves II through XII grossly intact. Rheumatologic--normal range of motion. Psychiatric--normal affect. Results & Data Results & Data Vital Signs (Past 12 Hours) Vital Signs Temp Pulse Pulse Resp BP Pulse Ox O2 Del Method 11/06/23 04:42 36.5 C 91 H 20 109/72 99 Room Air 11/05/23 23:56 36.8 C 83 16 106/57 L 100 Room Air 11/05/23 23:54 83 11/05/23 22:07 98 Room Air 11/05/23 21:51 96 H 18 112/65 97 Room Air 11/05/23 19:56 97 H 19 131/90 95 Room Air Laboratory Results 11/06/23 11/05/23 11/05/23 Range/Units 06:48 15:56 15:55 WBC 6.51 (4.8-10.8) K/ul RBC 4.04 L (4.20-5.40) M/uL Hgb 12.2 (12.0-16.0) g/dl Hct 37.0 (37.0-47.0) % MCV 91.6 (80.0-100.0) fL MCH 30.2 (25.0-34.0) pg MCHC 33.0 (32.0-36.0) g/dL RDW Std Deviation 42.5 (36.4-46.3) fL RDW Coeff of Aliyah 12.6 (11.5-14.5) % Plt Count 197 (130-400) K/uL MPV 10.8 (9.4-12.4) fL Immature Gran % (Auto) 0.5 % Neut % (Auto) 72.6 % Lymph % (Auto) 15.4 % [place] % (Auto) 10.4 % Eos % (Auto) 0.6 % Baso % (Auto) 0.5 % Neut # (Auto) 4.73 (1.40-6.50) K/uL Lymph # (Auto) 1.00 L (1.20-3.40) K/uL [place] # (Auto) 0.68 H (0.11-0.59) K/uL Eos # (Auto) 0.04 (0.00-0.50) K/uL Baso # (Auto) 0.03 (0.00-0.20) K/uL Immature Gran # (Auto) 0.03 (0.01-0.20) K/uL Sodium 137 (136-145) mmol/L Potassium 4.2 (3.5-5.1) mmol/L Chloride 106 (98-107) mmol/L Carbon Dioxide 24 (21-32) mmol/L Anion Gap 7 (3-11) BUN 5 L (6-23) mg/dl Creatinine 0.83 (0.6-1.2) mg/dl Est Cr Clr Drug Dosing 79.2 ml/min Est GFR ( Amer) 116.8 ml/min Est GFR (Non-Af Amer) 100.8 ml/min BUN/Creatinine Ratio 6.0 L (10-20) Glucose 83 (70-99(Fasting)) mg/dl Lactate (0.4-2.0) mmol/L Calcium 8.5 L (8.6-10.3) mg/dl Magnesium 1.9 (1.7-2.4) mg/dl Total Bilirubin 0.5 (0.2-1.0) mg/dl AST 14 (13-39) U/L ALT 9 (7-52) U/L Alkaline Phosphatase 39 (34-104) U/L Total Protein 6.1 (6.0-8.3) gm/dl Albumin 3.6 (3.4-5.0) gm/dl Globulin 2.5 (2.5-4.0) gm/dl Albumin/Globulin Ratio 1.4 (0.9-2) Procalcitonin (0-0.5) ng/ml Urine Color Urine Appearance (Clear) Urine pH (4.5-7.5) Ur Specific [place] (1.000-1.030) Urine Protein (Negative) Urine Glucose (UA) (Negative) Urine Ketones (Negative) Urine Blood (Negative) Urine Nitrite (Negative) Urine Bilirubin (Negative) Urine Urobilinogen (Negative) Ur Leukocyte Esterase (Negative) Urine WBC (Auto) (0-5) /hpf Urine RBC (Auto) (0-2) /hpf U Hyaline Cast (Auto) (0-2) /lpf U Epithel Cells (Auto) (0-2) /hpf Urine Bacteria (Auto) (None Seen) Urine Test (Negative) Adenovirus (PCR) Not Detected (NotDetected) B. pertussis DNA (PCR) Not Detected (NotDetected) B.parapertussis DNA PCR Not Detected (NotDetected) C. pneumoniae DNA (PCR) Not Detected (NotDetected) Coronavirus OC43 (PCR) Not Detected (NotDetected) Coronavirus HKU1 (PCR) Not Detected (NotDetected) Coronavirus 229E (PCR) Not Detected (NotDetected) SARS-CoV-2 (PCR) Not Detected (NotDetected) Coronavirus NL63 (PCR) Not Detected (NotDetected) Monoscreen Cancelled (Negative) Human Metapneumovir PCR Not Detected (NotDetected) Influenza Type A (PCR) Not Detected (NotDetected) Influenza Type B (PCR) Not Detected (NotDetected) M. pneumoniae (PCR) Not Detected (NotDetected) Parainfluenza 1 (PCR) Not Detected (NotDetected) Parainfluenza 2 (PCR) Not Detected (NotDetected) Parainfluenza 3 (PCR) Not Detected (NotDetected) Parainfluenza 4 (PCR) Not Detected (NotDetected) RSV (PCR) Not Detected (NotDetected) Entero/Rhino (PCR) Not Detected (NotDetected) Group A Strep (PCR) (NotDetected) 11/05/23 11/05/23 11/05/23 Range/Units 15:55 15:50 15:42 WBC 8.54 (4.8-10.8) K/ul RBC 4.35 (4.20-5.40) M/uL Hgb 13.5 (12.0-16.0) g/dl Hct 39.2 (37.0-47.0) % MCV 90.1 (80.0-100.0) fL MCH 31.0 (25.0-34.0) pg MCHC 34.4 (32.0-36.0) g/dL RDW Std Deviation 41.4 (36.4-46.3) fL RDW Coeff of Aliyah 12.5 (11.5-14.5) % Plt Count 209 (130-400) K/uL MPV 11.2 (9.4-12.4) fL Immature Gran % (Auto) 0.2 % Neut % (Auto) 76.7 % Lymph % (Auto) 11.9 % [place] % (Auto) 10.9 % Eos % (Auto) 0.2 % Baso % (Auto) 0.1 % Neut # (Auto) 6.54 H (1.40-6.50) K/uL Lymph # (Auto) 1.02 L (1.20-3.40) K/uL [place] # (Auto) 0.93 H (0.11-0.59) K/uL Eos # (Auto) 0.02 (0.00-0.50) K/uL Baso # (Auto) 0.01 (0.00-0.20) K/uL Immature Gran # (Auto) 0.02 (0.01-0.20) K/uL Sodium 135 L (136-145) mmol/L Potassium 4.3 (3.5-5.1) mmol/L Chloride 102 (98-107) mmol/L Carbon Dioxide 23 (21-32) mmol/L Anion Gap 10 (3-11) BUN 6 (6-23) mg/dl Creatinine 0.96 (0.6-1.2) mg/dl Est Cr Clr Drug Dosing 65.1 ml/min Est GFR ( Amer) 98.0 ml/min Est GFR (Non-Af Amer) 84.5 ml/min BUN/Creatinine Ratio 6.3 L (10-20) Glucose 79 (70-99(Fasting)) mg/dl Lactate 1.0 (0.4-2.0) mmol/L Calcium 9.0 (8.6-10.3) mg/dl Magnesium 2.1 (1.7-2.4) mg/dl Total Bilirubin 0.3 (0.2-1.0) mg/dl AST 15 (13-39) U/L ALT 10 (7-52) U/L Alkaline Phosphatase 46 (34-104) U/L Total Protein 7.2 (6.0-8.3) gm/dl Albumin 4.3 (3.4-5.0) gm/dl Globulin 2.9 (2.5-4.0) gm/dl Albumin/Globulin Ratio 1.5 (0.9-2) Procalcitonin 0.29 (0-0.5) ng/ml Urine Color Yellow Urine Appearance Cloudy A (Clear) Urine pH 6.5 (4.5-7.5) Ur Specific [place] 1.017 (1.000-1.030) Urine Protein 1+ H (Negative) Urine Glucose (UA) Negative (Negative) Urine Ketones 1+ H (Negative) Urine Blood Negative (Negative) Urine Nitrite Negative (Negative) Urine Bilirubin Negative (Negative) Urine Urobilinogen Negative (Negative) Ur Leukocyte Esterase Trace H (Negative) Urine WBC (Auto) 6-10 H (0-5) /hpf Urine RBC (Auto) 3-5 H (0-2) /hpf U Hyaline Cast (Auto) 0-2 (0-2) /lpf U Epithel Cells (Auto) 6-10 H (0-2) /hpf Urine Bacteria (Auto) 2+ H (None Seen) Urine Test Negative (Negative) Adenovirus (PCR) (NotDetected) B. pertussis DNA (PCR) (NotDetected) B.parapertussis DNA PCR (NotDetected) C. pneumoniae DNA (PCR) (NotDetected) Coronavirus OC43 (PCR) (NotDetected) Coronavirus HKU1 (PCR) (NotDetected) Coronavirus 229E (PCR) (NotDetected) SARS-CoV-2 (PCR) (NotDetected) Coronavirus NL63 (PCR) (NotDetected) Monoscreen Negative (Negative) Human Metapneumovir PCR (NotDetected) Influenza Type A (PCR) (NotDetected) Influenza Type B (PCR) (NotDetected) M. pneumoniae (PCR) (NotDetected) Parainfluenza 1 (PCR) (NotDetected) Parainfluenza 2 (PCR) (NotDetected) Parainfluenza 3 (PCR) (NotDetected) Parainfluenza 4 (PCR) (NotDetected) RSV (PCR) (NotDetected) Entero/Rhino (PCR) (NotDetected) Group A Strep (PCR) NOT DETECTED (NotDetected) Diagnostic Findings Abdomen/Pelvis CT 11/05/23 15:[address] WITH IV CONTRAST CT DOSE: 324.72 mGy.cm HISTORY: Acute left-sided flank pain with urinary tract infection Left flank pain, UTI, fever - eval pyelo TECHNIQUE: Multiaxial CT images of the abdomen and pelvis were performed following the IV administration of 93 cc of Optiray, A dose lowering technique was utilized adhering to the principles of ALARA. COMPARISON STUDY: None. FINDINGS: The lung bases are clear. The liver, spleen, gallbladder, pancreas, and adrenal glands are within normal limits. Unremarkable right kidney. There is a 1.6 x 0.5 cm focus of decreased attenuation within the superior pole left kidney on image 101 with moderate adjacent inflammatory stranding. 2.1 cm focus of decreased enhancement involves the anterior interpolar right kidney on image 126 series 3. Retroaortic left renal vein. There is inflammatory stranding within the left renal pelvis with urothelial thickening. No renal or ureteral calculi or hydronephrosis. Decompressed bladder with wall thickening. Bilateral ovarian follicles. Trace free pelvic fluid. Normal appendix. No bowel wall thickening or obstruction. No suspicious lytic or blastic osseous lesions. IMPRESSION: 1. Cystitis with findings suggestive of acute left-sided pyelonephritis and ureteritis/pyelitis with 1.6 cm hypodensity of the superior pole suggestive of a probable abscess. One-week follow-up ultrasound recommended. 2. 2 cm focus of decreased enhancement within the mid pole left kidney is likely related to the aforementioned pyelonephritis. A renal infarct considered less likely. This can also be evaluation on follow-up. 3. Normal appendix. ACT 112: Negative or not required by law. The above report was generated using voice recognition software. It may contain grammatical, syntax or spelling errors. Electronically signed by: Jaspal Galicia M.D. 11/05/2023 6:39 PM Chest X-Ray 11/05/23 15:35 XR chest 1V portable HISTORY: fever, flank pain COMPARISON: None. FINDINGS: The lungs are clear. Cardiac silhouette is normal in size. No pleural effusions. No pneumothorax. IMPRESSION: No acute process. ACT 112: Negative or not required by law. Electronically signed by: Nicolas Canas M.D. 11/05/2023 4:15 PM
[2023-11-06 07:36] LABS: Albumin Globulin Ratio 1.4 (0.9-2); Albumin Level 3.6 gm/dl (3.4-5.0); Bilirubin,Total 0.5 mg/dl (0.2-1.0); Calcium 8.5 mg/dl (8.6-10.3); Creatinine Clr Calc Pharmacy 79.2 ml/min; Est GFR (African American) 116.8 ml/min; Est GFR (Non-African American) 100.8 ml/min; Globulin 2.5 gm/dl (2.5-4.0); Magnesium 1.9 mg/dl (1.7-2.4); Potassium 4.2 mmol/L (3.5-5.1); Total Protein 6.1 gm/dl (6.0-8.3)
--- NOTE | 2023-11-06 08:11 | Urology Consultation ---
<Statement entered by Ho Garcia MD - 11/06/23 14:13> I have discussed Ms. Varma's case with KERRI Diaz and agree with the above documentation. She is on broad-spectrum antibiotics for UTI, renal abscess. At this may be too small to drain at this point. Continue broad- spectrum coverage and narrow as culture data becomes available. If she continues to spike fevers, consider reimaging sooner than 1 week to evaluate for progression of the abscess. Would additionally obtain blood cultures if she continues to have fevers. -Ho Garcia MD. Date of Consultation November 06, 2023 Assessment & Plan (1) Sepsis due to urinary tract infection: (2) Abscess of left kidney: (3) Pyelonephritis of left kidney: 23-year-old female admitted for sepsis secondary to UTI/left pyelonephritis and left renal abscess. Patient was afebrile overnight, hemodynamically stable Subjectively feeling better today Labs reviewedcreatinine 0.83, no leukocytosis Urine culture is pending Outpatient urine culture on 11/02 grew out E. coli, pansensitive; failed outpatient treatment with Bactrim DS CT reviewed and discussedfindings consistent with left pyelonephritis and 1.6 cm left renal abscess Left renal abscess does not meet size criteria for IR drainage Continue broad-spectrum antibiotics and narrow per sensitivity data when available Plan to repeat imaging in approximately 1 week If she continues to spike fevers, then recommend obtain blood cultures and repeat imaging sooner Continue supportive care will follow History of Present Illness Attending Physician: David Lopez DO History of Present Illness This is a 23-year-old female who presented to the emergency department for evaluation of worsening urinary symptoms and fever. She was recently evaluated by her PCP on 11/03/2023 for flank pain, fever with Tmax 104, and nausea. She was diagnosed with a UTI at that time and was started on Bactrim DS twice daily x 7 days. Her urine culture on 11/03/2023 grew out greater than 100,000 CFU of E. coli, pansensitive. She continued to have fevers and urinary symptoms at home and presented to the emergency department for further evaluation. On arrival to ED, she was afebrile, tachycardic. Lab work reviewed and showed hyponatremia of 135, normal renal function (creatinine 1.96), no leukocytosis (WBC 8.54). Urinalysis showed trace LE, 6-10 WBC, 3-5 RBC, 6-10 epithelial cells and 2+ bacteria. Urine culture collected. Urine was negative. Respiratory PCR panel was negative. Workup in the emergency department included CT abdomen and pelvis with IV contrast. CT imaging reviewed and demonstrated findings suggestive of cystitis and acute left-sided pyelonephritis and ureter ureteritis/pyelitis with a 1.6 cm hypodensity of the superior pole suggestive of probable abscess. Also noted a 2 cm focus of decreased enhancement within the mid pole of the left kidney likely related to pyelonephritis. ED course: IV fluids, ceftriaxone, ketorolac and ondansetron. She was admitted to the hospital medicine service. Urology consulted for left pyelonephritis and left renal abscess. Patient seen and examined at bedside this morning. Generally feeling better since arrival. No fevers or chills overnight. Left flank pain has improved since arrival. No nausea or vomiting. No dysuria or hematuria. She reports prior history of pyelonephritis a few years ago which was treated outpatient. Allergies Allergy/AdvReac Type Severity Reaction Status Date / Time No Known Allergies Allergy Verified 11/03/23 11:03 Home Medications Medication Instructions Recorded Confirmed Type norethindrone 1.5 mg-ethinyl 1 tab PO DAILY #84 tabs 10/13/23 11/05/23 Rx estradiol 30 mcg(21)/iron 75 mg(7) tablet (Junel FE 1.5/30 (28)) sulfamethoxazole 800 1 tab PO BID 7 days #14 tabs 11/03/23 11/05/23 Rx mg-trimethoprim 160 mg tablet (Bactrim DS) acetaminophen 500 mg tablet 1,000 mg PO Q6H PRN Fever Or Pain 11/05/23 11/05/23 History (Tylenol Extra Strength) ibuprofen 200 mg tablet 400 mg PO Q6H PRN Pain 11/05/23 11/05/23 History Patient History Surgical History No history of previous surgery Family History Father No problems noted. Mother No problems noted. Other Breast cancer Denies family history of Ovarian cancer Prostate cancer Colorectal cancer Social History Smoking Status: Current every day smoker Tobacco Type: E-cigarettes / Vaping Second Hand Exposure: Yes; Do You Dip or Chew Tobacco: No; Hx Alcohol Use: Yes Hx Substance Use: No Preferred Language: Sinhala Communication Ability: Effective Visual Impairment: No Limitations Hearing Ability: Normal Balance Bridge Inspector Required: No Beliefs That Will Affect Care: None marital status: Single Current Living Situation: Family current occupational status: employed Feels Safe at Home: Yes Childhood Exposure to Second-Hand Smoke: Yes Diet: regular Dental Care, Regularly: Yes Physical Activity Frequency: 1-2 Times per Week Seatbelt Use: always Sunscreen Use: No Assistive Devices: None Review of Systems Review of Systems: ROS was performed with pertinent positives noted as above; all other systems negative Physical Exam Constitutional: well developed and well nourished; no acute distress Respiratory: normal respiratory effort; no respiratory distress and no labored breathing Gastrointestinal (Abdomen): Inspection/Auscultation: abdomen normal to inspection Musculoskeletal: Head/Neck/Chest: normocephalic Neurologic: moves all extremities and awake Psychiatric: Orientation: alert and oriented x 3 Results & Data Vital Signs (Past 12 Hours) Vital Signs Temp Pulse Pulse Resp BP BP Pulse Ox 11/06/23 07:42 36.6 C 73 14 96/61 L 98 11/06/23 04:42 36.5 C 91 H 20 109/72 99 11/05/23 23:56 36.8 C 83 16 106/57 L 100 11/05/23 23:54 83 11/05/23 22:07 98 11/05/23 21:51 96 H 18 112/65 97 O2 Del Method 11/06/23 07:42 Room Air 11/06/23 04:42 Room Air 11/05/23 23:56 Room Air 11/05/23 23:54 11/05/23 22:07 Room Air 11/05/23 21:51 Room Air PG Care Time/CCT Total # of Minutes Spent Total Time Spent with Patient: Total time spent is greater than 50% in coordination of care (as documented) at patient's floor/unit and/or counseling patient: Coding Level of Care Code 86852 IN/OBS CONSULT LVL 4,60M Diagnoses Sepsis due to urinary tract infection A41.9; N39.0 Abscess of left kidney N15.1 Pyelonephritis of left kidney N12
--- NOTE | 2023-11-06 12:51 | Billing Data ---
Date of Service November 06, 2023 Coding Level of Care Code 99050 SUB INP/OBS CARE MIN
[2023-11-06] MEDS: cefTRIAXone SODIUM 1,000 MG/50 ML BAG IV STA (14:28)
--- NOTE | 2023-11-07 07:17 | Discharge Summary ---
Date of Service November 07, 2023 Admission HPI Per Admitting Provider The patient is a 23-year-old female with a past medical history including left breast mass, and a history of urinary tract infections, who presents to the emergency department with worsening symptoms as noted above despite being placed on Bactrim DS for a pansensitive E. coli urinary tract infection. Principal Diagnosis Left pyelonephritis, Left renal abscess Discharge Exam The patient is awake, alert and oriented 3, well developed, normocephalic and atraumatic, sitting in chair and in no acute distress. HEENT--PERRL, EOMI, mucous membranes and oropharynx mildly moist. Neck--No JVD. Thyroid normal, trachea midline, no adenopathy. Heart--normal S1 and S2. No murmurs, rubs or gallops. Lungs--clear bilaterally, no respiratory distress, no accessory muscle use. Abdomen--normal bowel sounds and soft. Nontender. Extremities--no cyanosis or clubbing. No edema. Dermatologic--normal skin turgor, normal color, no abnormal lymph nodes, no rash. Neurologic--cranial nerves II through XII grossly intact. Psychiatric--normal affect. Discharge Data Allergies Allergy/AdvReac Type Severity Reaction Status Date / Time No Known Allergies Allergy Verified 11/03/23 11:03 Consultations 11/05/23 19:15 ED Decision to Admit Stat 11/05/23 22:07 Consult Urology Routine Ordered Studies 11/05/23 15:35 CT abd pelvis IV con only Stat Hospital Course (1) Sepsis due to urinary tract infection: (2) Abscess of left kidney: (3) Pyelonephritis of left kidney: (4) Failure of outpatient treatment: (5) Ureteritis: (6) Pyelitis: (7) Cystitis: (8) Nausea and vomiting: Plan 1. Sepsis IVF and antibiotics given in ED. Sepsis appears to have resolved. Pt is afebrile, BPs and HR have been normal. - Monitor vitals - Monitor CMP and magnesium level 2. Left kidney abscess CT scan of abdomen pelvis found 1.6 cm abscess at superior pole. - Urology consult states abscess is below size criteria for drainage. Advised to continue broad abx and narrow following results of urine culture. 3. Left pyelonephritis Pt received Bactrim in outpatient setting for acute cystitis on 11-04-23. Urine culture in outpatient grew pansensitive E. coli. L flank pain progress along with nausea and vomiting. Pt was give IV ceftriaxone, then switched daptomycin, but switched to IV pip-tazo. Urine Cultures pending from ED. Nausea and vomiting has stopped. - Change IV pip-tazo and daptomycin to IV ceftriaxone IV 1g q24h - Await urine cultures - Continue LR 125 mls - Tylenol po for fever or pain - Zofran PRN for nausea Full code DC to home when stable DVT prophylaxis- mobile LR 125mls Full diet Total Time Total Time Spent Total Time Spent (In Minutes): Refer to attending physician attestation. Discharge Plan Discharge Items Patient Disposition: Home - Self-Care Reason For Visit: PYELO, RENAL ABSCESS, HYPOTENSION Discharge Diagnosis: Pyelonephritis, renal abscess Condition on Discharge: Good Activity: Resume your previous activity Non-emergency contact: Primary Care Provider Call non-emergency contact if: you have any medication questions, your symptoms worsen and your temperature is above 101.5 Follow-up/Referrals: Doreen Sutton CRNP [Primary Care Provider] - 11/13/23 2:00 pm Diet: Regular Addtl Attending Provider Instructions: You were found to have an infection in your left kidney that caused a small abscess. You were treated with IV antibiotics, fever and pain relievers, as well as IV fluids. We have sent a prescription to your pharmacy for ciprofloxacin 500mg to be taken twice per day for 12 days. Please be sure to complete your course of antibiotics. You will need to make a follow up appointment with the urologist to assure resolution of the abscess in your left kidney. While your left flank pain, fever, and urinary symptoms will resolve relatively quickly, you may feel tired and run down for up to 4 weeks follow your hospital stay. This is normal and will resolve as well. Pending Studies at Discharge: No Stand-Alone Forms: My [employer], Work/School Release, Smoking Cessation Medications and DC Order Prescriptions: New ciprofloxacin HCl 500 mg tablet 500 mg PO BID Qty: 24 0RF Continued norethindrone-e.estradiol-iron [ FE .5/ (28)] 1.5 mg-30 mcg (21)/75 mg (7) tablet 1 tab PO DAILY Qty: 84 4RF No Action sulfamethoxazole-trimethoprim [Bactrim DS] 800-160 mg tablet 1 tab PO BID 7 Days Qty: 14 0RF acetaminophen [Tylenol Extra Strength] 500 mg Tablet 1,000 mg PO Q6H PRN (Reason: Fever Or Pain) ibuprofen 200 mg Tablet 400 mg PO Q6H PRN (Reason: Pain) Discharge Orders: Discharge Order (Routine); Ordered 11/07/23 Ordered By: Fernanda De La Garza Admission Data Admit Date/Time: 11/05/23 19:55 Attending Provider: Vick Ragsdale Admit Provider: Nathan Miles Primary Care Provider: Doreen Sutton Other Providers: Nathan Miles; David Stewart Supervising Physician Co-Signing Physician Notes Patient seen and examined, chart reviewed, case discussed with Dr. De La Garza and I agree with the assessment and plan as above except as otherwise noted Labs and images reviewed 23-year-old female who presented with sepsis due to left pyelonephritis with abscess. 1.6 cm abscess at superior pole, not amenable to drainage. Urology was consulted and following. Patient rapidly clinically improved with fluids and antibiotics. Initially was treated with Zosyn/Dapto and was narrowed to ceftriaxone. patient has appointment set up for repeat evaluation and renal ultrasound with urology this coming week. She feels 80% back to her normal baseline at time of reassessment with 20% remaining being mostly fatigue. Denies pain. Patient has a small stature and notes that her blood pressure normally runs low, and typically requires a smaller cuff. Normotensive at bedside. No leukocytosis. Initial urine culture was positive for pansensitive E. coli, patient felt she clinically worsened on Bactrim. Repeat urine culture likely sterilized. Clinically improved on Rocephin and will be transitioned to ciprofloxacin on discharge. Patient feels well; strict return precautions were discussed to which she and her mother are agreeable. Agree with above. Time spent day of discharge independent of review with resident provide approximately 40 minutes including discussion with patient and her mother, review of labs/images/prior documentation, documentation.
[2023-11-07 07:45] LABS: Basophils # (auto) 0.03 K/uL (0.00-0.20); Basophils % (auto) 0.4 %; Eosinophils # (auto) 0.07 K/uL (0.00-0.50); Hematocrit (blood only) 38.4 % (37.0-47.0); Immature Granulocytes # (auto) 0.02 K/uL (0.01-0.20); Immature Granulocytes % (auto) 0.3 %; Lymphocytes # (auto) 1.31 K/uL (1.20-3.40); Lymphocytes % (auto) 19.6 %; Mean Corpuscular Hemoglobin 30.7 pg (25.0-34.0); Mean Corpuscular Hgb Conc 33.9 g/dL (32.0-36.0); Mean Corpuscular Volume 90.6 fL (80.0-100.0); Mean Platelet Volume 10.8 fL (9.4-12.4); Neutrophils # (auto) 4.64 K/uL (1.40-6.50); Neutrophils % (auto) 69.7 %; Platelet Count 248 K/uL (130-400); RDW Coefficient of Variation 12.4 % (11.5-14.5); Red Blood Count 4.24 M/uL (4.20-5.40); White Blood Count 6.67 K/ul (4.8-10.8)
[2023-11-07 08:03] LABS: Albumin Globulin Ratio 1.6 (0.9-2); Albumin Level 3.9 gm/dl (3.4-5.0); BUN Creatinine Ratio 9.3 (10-20); Bilirubin,Total 0.4 mg/dl (0.2-1.0); Calcium 9.1 mg/dl (8.6-10.3); Creatinine Clr Calc Pharmacy 76.8 ml/min; Est GFR (African American) 111.9 ml/min; Est GFR (Non-African American) 96.6 ml/min; Globulin 2.5 gm/dl (2.5-4.0); Magnesium 1.9 mg/dl (1.7-2.4); Potassium 4.2 mmol/L (3.5-5.1); Total Protein 6.4 gm/dl (6.0-8.3)
[2023-11-07] MEDS ORDERED: ACETAMINOPHEN 500 MG TAB PO PRN (08:42)
--- NOTE | 2023-11-07 08:51 | Urology Progress Note ---
Date of Service November 07, 2023 Assessment & Plan (1) Pyelonephritis of left kidney: (2) Failure of outpatient treatment: Plan: 23-year-old female admitted for sepsis secondary to UTI/left pyelonephritis and left renal abscess. Patient remains afebrile, hemodynamically stable Subjectively feeling much better today No flank pain, fever or chills Labs reviewedcreatinine 0.86, no leukocytosis Urine culture is prelim no growth Outpatient urine culture on 11/02 grew out E. coli, pansensitive; failed outpatient treatment with Bactrim DS Left renal abscess does not meet size criteria for IR drainage She is clinically improving with antibiotics Continue antibiotics for complicated UTI, continue supportive care Plan to repeat imaging in approximately 1 week We will arrange outpatient follow-up with our service will sign, please contact our service with any questions or concerns Admission and Anticipated Discharge Date Admission Date: November 05, 2023 Subjective Patient subjectively feeling well this morning. No flank pain. No fever or chills. Reports low appetite, no nausea or vomiting. Voiding spontaneously without difficulty. Review of Systems Constitutional: as per Subjective / HPI Genitourinary: as per Subjective / HPI Physical Exam Constitutional: well developed and well nourished; no acute distress Respiratory: normal respiratory effort; no respiratory distress and no labored breathing Gastrointestinal (Abdomen): Inspection/Auscultation: abdomen normal to inspection Musculoskeletal: Head/Neck/Chest: normocephalic Neurologic: moves all extremities and awake Psychiatric: Orientation: alert and oriented x 3 Results & Data Vital Signs (Past 12 Hours) Vital Signs Temp Pulse Pulse Pulse Resp BP BP 11/07/23 08:11 36.6 C 86 18 99/60 L 11/07/23 07:33 72 11/07/23 04:04 36.8 C 92 H 16 108/56 L 11/06/23 23:15 36.8 C 87 16 105/56 L 11/06/23 22:01 76 Pulse Ox O2 Del Method 11/07/23 08:11 99 Room Air 11/07/23 07:33 11/07/23 04:04 98 Room Air 11/06/23 23:15 99 Room Air 11/06/23 22:01 PG Care Time/CCT Total # of Minutes Spent Total Time Spent with Patient: Total time spent is greater than 50% in coordination of care (as documented) at patient's floor/unit and/or counseling patient: Coding Level of Care Code 16333 SUB INP/OBS CARE Diagnoses Pyelonephritis of left kidney N12 Failure of outpatient treatment Z78.9
--- NOTE | 2023-11-07 12:29 | Billing Data ---
Date of Service November 07, 2023 Coding Level of Care Code 86535 INP/OBS DISCH >30 MIN
[2023-11-07] MEDS: cefTRIAXone SODIUM 2,000 MG/50 ML BAG IV SCH (14:12)
== END 2023-11-07 15:34 | disposition home or self-care (01) | DRG 871 ==
LOC: ED 15:11 → SUATTDRO 19:55 → EDINP 19:55 → 2N 22:07